=== PATIENT | male | born 1955 | race Caucasian/White ===

== ENCOUNTER 2023-10-08 07:00 | Day surgery (SDC) | payer MEDICARE ==
[~2023-10-08] VITALS: Ht 180.3 cm; Wt 86.2 kg
[~2023-10-08 07:00] MED LIST: MEDDOSEPAK PO; MOBIC7.5 MG PO; PRAVASTATIN SOD20 MG PO; TRICOR145 MG PO; VIAGRA100 MG PO; VYTORIN 10/201 TAB PO; ZPAK PO
[2023-10-08] MEDS ORDERED: BENADRYL 25MG C25 MG PO (07:15)
[2023-10-08 09:30] VITALS: BP 116/78
== END 2023-10-08 11:30 | disposition home or self-care (01) ==
LOC: ENDO 07:00 → ORM 09:15 → ENDO 11:30
PROVIDERS: ATTEND Surgery
PROC: 0DJD8ZZ Inspection of Lower Intestinal Tract, Via Natural or Artificial Opening Endoscopic (ICD-10-PCS; principal; 2023-10-08)
PROC: 0DB48ZX Excision of Esophagogastric Junction, Via Natural or Artificial Opening Endoscopic, Diagnostic (ICD-10-PCS; 2023-10-08)
DX: Z12.11 Encounter for screening for malignant neoplasm of colon (principal); K57.30 Diverticulosis of large intestine without perforation or abscess without bleeding; K64.8 Other hemorrhoids; K21.00 Gastro-esophageal reflux disease with esophagitis, without bleeding; K44.9 Diaphragmatic hernia without obstruction or gangrene; I10 Essential (primary) hypertension; Z80.0 Family history of malignant neoplasm of digestive organs; Z86.010 Personal history of colon polyps
CPT/HCPCS: 43239; G0105